=== PATIENT | female | born 1960 | race American Indian/Alaskan Native ===

== ENCOUNTER 2021-08-05 00:34 | Emergency (ER) | payer OTHER ==
[2021-08-05 00:58] VITALS: BP 147/90
[2021-08-05] MEDS ORDERED: HYDROcodone/ACETAMINOPHEN 5-325 MG TAB PO ONE (01:55)
[2021-08-05] MEDS ORDERED: ONDANSETRON 4 MG ODT TAB PO ONE (02:09)
[2021-08-05] MEDS ORDERED: TETANUS,DIPH,PERTUSS(ACELL) VACCINE 0.5 ML SYRINGE IM ONE (02:09)
[2021-08-05] MEDS ORDERED: LIDOCAINE 1%/EPINEPHRINE 1:100,000 VIAL (20 ML) INFILTRATI NR (02:15)
--- NOTE | 2021-08-05 02:21 | Emergency Department Report ---
ED General Adult HPI - General Chief complaint: Wound/Laceration Stated complaint: HEAD INJURY Time Seen by Provider: 08/05/21 02:00 Source: patient Mode of arrival: Ambulatory Limitations: No Limitations - History of Present Illness Initial comments: 61-year-old female patient with history of hypertension presents to the emergency department with complaints of a laceration to her forehead occurring earlier tonight. Patient states she accidentally slipped and landed on her forehead on a hardwood floor. There was no resulting loss of consciousness. Patient is not anticoagulated. Patient is able to recall the events surrounding the fall in entirety. Cannot recall last tetanus immunization. Denies neck pain, blurred vision, nausea, vomiting, syncope, seizure, paresthesias, numbness, weakness, dizziness. Denies all other complaints at this time. Severity scale (0 -10): 4 - Related Data Previous Rx's Medication Instructions Recorded Last Taken Type Mupirocin [Bactroban 2%] 1 applic TP TID #1 tube 08/05/21 Unknown Rx Allergies Allergy/AdvReac Type Severity Reaction Status Date / Time No Known Allergies Allergy Unverified 08/05/21 00:54 ED Review of Systems ROS: Stated complaint: HEAD INJURY Other details as noted in HPI Other: GENERAL: Negative for fever. CARDIOVASCULAR: Negative for chest pain. PULMONARY: Negative for shortness of breath. GASTROINTESTINAL: Negative for abdominal pain. MUSCULOSKELETAL: Negative for back pain. NEUROLOGICAL: Negative for headache. INTEGUMENTARY: Positive for laceration. ED Past Medical Hx - Past Medical History Previous Medical History?: Yes Hx Hypertension: Yes - Surgical History Past Surgical History?: No - Medications Home Medications: Home Medications Medication Instructions Recorded Confirmed Last Taken Type Mupirocin [Bactroban 2%] 1 applic TP TID #1 tube 08/05/21 Unknown Rx ED Physical Exam - General Limitations: No Limitations - Other Other exam information: General: Awake, appropriately interactive, no acute distress. HEENT: See skin exam below. No ecchymosis suggestive of basilar skull fracture. Neck: Supple. Full range of motion intact. Cardiovascular: Normal peripheral perfusion. Pulmonary: No respiratory distress. Patient is speaking normally without use of accessory muscles. Skin: 2 cm irregular oblique V-shaped laceration to the middle of the forehead involving skin and subcutaneous tissue. The wound is not grossly contaminated. Good hemostasis. The wound edges are somewhat approximated. Neurological: No facial asymmetry. Speech is clear. Follows commands. Patient is alert and oriented. Musculoskeletal: Moves all four extremities spontaneously with normal range of motion. Psych: Cooperative. Appropriate mood and affect. ED Course Vital Signs 08/05/21 00:57 Temperature 97.5 F L Pulse Rate 70 Respiratory 16 Rate Blood Pressure 147/90 [Right] O2 Sat by Pulse 98 Oximetry - Procedure Description Procedures done: Verbal consent was obtained from the patient. The site was identified. The area was prepped and draped. Hand hygiene was observed. The wound was cleansed with Betadine. The wound was irrigated with saline. Lidocaine 1% with epinephrine was used for anesthetic. Approximately 6 mL infiltrated along wound edges. The wound was explored for foreign body. No foreign body was found. Eight 5-0 Prolene sutures were placed in a simple interrupted fashion. Antibiotic ointment applied. Dressing applied. Patient tolerated procedure well without complications. ED Medical Decision Making - Medical Decision Making Differential diagnosis including but not limited to: laceration, abrasion, contusion, intracranial hemorrhage, skull fracture, concussion Patient presents with complaints of forehead laceration status post head trauma. Patient meets none of the following criteria: age < 16 years, (+) anticoagulation, seizure following injury, GCS < 15, clinical evidence of skull fracture, > 2 episodes of vomiting, age > 65 years, retrograde amnesia to the event, "dangerous" mechanism. Therefore, according to the [place] CT Rule, patient does not have a statistically significant chance of an intracra nial injury requiring neurosurgical intervention; CT of the head is not indicated at this time. On reevaluation, patient remains stable. Repeat neurological exam remains nonfocal. Tetanus updated. Laceration repaired without complications. See procedure note for details. No clinical indication for further diagnostic work- up on an emergent basis at this time. Patient will be discharged home with a ntibiotic ointment and close outpatient follow-up. Patient expressed understanding and is agreeable to plan of care. Wound care precautions discussed. Strict return precautions provided. Repeat exam is unremarkable and benign. History, exam, diagnostic testing, and current condition do not suggest worrisome pathology to warrant further testing, continued ED treatment, admission, or surgical evaluation at this point. Given the low probability of a significant medical illness, it would be more likely to result in harm than benefit to perform further testing at this stage. Discussed findings, presumptive diagnosis, need for follow-up and specific signs/symptoms that should prompt immediate return to the emergency department. Instructions were explained in detail to the patient in addition to giving written discharge information. Patient expressed understanding and was given the opportunity to ask questions, all of which were satisfactorily answered prior to discharge home. Critical care attestation.: If time is entered above; I have spent that time in minutes in the direct care of this critically ill patient, excluding procedure time. ED Disposition Clinical Impression: Forehead laceration Qualifiers: Encounter type: initial encounter Qualified Code(s): S01.81XA - Laceration without foreign body of other part of head, initial encounter Disposition: HOME / SELF CARE / HOMELESS Is pt being admited?: No Does the pt Need Aspirin: No Condition: Stable Instructions: Sutured Wound Care, [id number] Additional Instructions: Take Tylenol every 4 hours and Motrin every 8 hours as needed for pain. Apply Bactroban ointment to affected area 3 times daily. Keep wound clean and covered. Change dressing daily. Limit sun exposure for improved cosmetic results. Follow-up with your primary care provider in five days for suture removal. Call today to schedule an appointment. Follow-up with Dr. Guardado, plastic surgery, in six months if scar revision is desired. Return to the emergency department immediately for new or worsening symptoms. Prescriptions: Mupirocin [Bactroban 2%] 1 applic TP TID #1 tube Referrals: BRITTANY NEELY MD [Staff Physician] - 3-5 Days Forms: Work/School Release Form(ED) Time of Disposition: 03:09
[2021-08-05] MEDS ORDERED: NEOMY 3.5 MG/BACIT 400 UNITS/POLY B 5000 UNITS/GM OINT PACKET TP ONE (03:02)
== END 2021-08-05 03:15 | disposition home or self-care (01) ==
LOC: ED 00:34
DX: S01.81XA Laceration without foreign body of other part of head, initial encounter (principal); I10 Essential (primary) hypertension; W01.0XXA Fall on same level from slipping, tripping and stumbling without subsequent striking against object, initial encounter; Y93.89 Activity, other specified; Y92.89 Other specified places as the place of occurrence of the external cause; Y99.8 Other external cause status
CPT/HCPCS: 90471; 90715; 99282; Q0162